=== PATIENT | female | born 1995 | race African-American/Black ===

== ENCOUNTER 2020-09-28 22:20 | Emergency (ER) | payer SELFPAY ==
[~2020-09-28] VITALS: Ht 165.1 cm; Wt 79.5 kg
[2020-09-28 22:34] VITALS: BP 122/81; Ht 165.1 cm; Wt 79.5 kg
[2020-09-28 23:42] LABS: BASOPHILS 1.1 % (0-2); HEMATOCRIT 41.8 % (36.0-48.0); LYMPHOCYTES 30.6 % (15-50); MCH 32.3 pg (26.0-34.0); MCHC 33.4 g/dL (31.0-37.0); MCV 96.5 fL (80.0-100.0); MEAN PLATELET VOLUME 8.8 fL (7.4-10.4); MONOCYTES 13.1 % (2-11); NEUTROPHILS 49.2 % (40-80); PLATELET COUNT 304 10x3/uL (130-400); RBC 4.33 10x6/uL (4.00-5.40); RDW 12.9 % (11.5-14.5); WBC 8.3 10x3/uL (4.8-10.8)
[2020-09-28 23:50] LABS: CALC OSMOLALITY 281 mosm/kg (275-300); CHLORIDE - SERUM 106 mmol/L (98-107); CREATININE - SERUM 0.9 mg/dL (0.6-1.3); GLUCOSE 92 mg/dL (74-106); POTASSIUM - SERUM 3.6 mmol/L (3.5-5.1); SODIUM 141 mmol/L (136-145); UREA NITROGEN 16 mg/dL (7-18); eGFR NON AFRICAN AMERICAN 81 mL/min (90-120)
[2020-09-29 00:05] LABS: ALBUMIN 4.1 g/dL (3.4-5.0); ALKALINE PHOSPHATASE 70 U/L (30-120); ALT (SGPT) 37 U/L (10-68); HCG - QUANTITATIVE (MATERNAL) 6 mIU/mL; PROTEIN - SERUM 8.1 g/dL (6.4-8.2)
[2020-09-29 02:34] LABS: BACTERIA FEW HPF (<MOD); BILIRUBIN NEGATIVE (NEGATIVE); KETONE TRACE mg/dL (< 1+); NITRITE NEGATIVE (NEGATIVE); PH 5.5 (5.0-8.0); SQUAMOUS EPITHELIAL 11 HPF (0-4); UROBILINOGEN 2 mg/dL (< 2); WHITE CELLS - URINE 35 HPF (0-4)
== END 2020-09-29 08:23 | disposition home or self-care (01) ==
LOC: D.ER 22:20
PROVIDERS: Emergency Medicine
DX: O20.9 Hemorrhage in early pregnancy, unspecified (principal); O20.0 Threatened abortion; O26.899 Other specified pregnancy related conditions, unspecified trimester; R10.9 Unspecified abdominal pain; J45.909 Unspecified asthma, uncomplicated; F17.210 Nicotine dependence, cigarettes, uncomplicated